=== PATIENT | male | born 2000 | race Two or more races ===

== ENCOUNTER 2025-01-16 14:44 | Emergency (ER) | payer OTHER ==
[~2025-01-16] VITALS: Ht 170.2 cm; Wt 71.3 kg
--- NOTE | 2025-01-16 16:05 | ED.PDOC ---
History of Present Illness HPI Comments 24-year-old male presents to ER with complaints of dog bite to left shoulder x1 day. Patient reports that he was bitten by a Rottweiler dog on his left shoulder at 11:00 a.m. 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 He reports 3/10 pain to left shoulder radiation. States that the owners of the dog reported that the dog was "up-to-date on shots". Notes he is unsure when his last tetanus shot was and presents to ER ambulatory on arrival, with steady gait, in no distress. Denies numbness/tingling, shortness of breath, chest pain, foreign body sensation or any further symptoms/complaints Chief Complaint: Animal Bite Time Seen by MD: 14:47 Primary Care Provider: UNKNOWN Reviewed Notes: Nurses Notes, Medications, Allergies Allergies: Coded Allergies: NO KNOWN ALLERGIES (Unverified , 01/16/25) Home Meds Active Scripts Amoxicillin & Pot Clavulanate (Amoxicillin/Potassium Cla) 875 Mg Tab, 1 TAB PO BID for 7 Days, #14 TAB 0 Refills Prov:TREASURE CARNES 01/16/25 Acetaminophen (Acetaminophen) 500 Mg Tab, 500 MG PO Q4HPRN, #30 TAB 0 Refills Prov:TREASURE CARNES 01/16/25 Information Source: Patient Mode of Arrival: Ambulatory Past Medical History PAST MEDICAL HISTORY: Denies Surgical History: Denies all surgeries Family History Family History: Unknown Social History Smoker: Non-Smoker Alcohol: Denies ETOH Use Drugs: Denies Drug Use Lives In: Home Constitutional: denies: chills, diaphoresis, fatigue, fever, malaise, sweats, weakness, others EENTM: denies: blurred vision, double vision, ear bleeding, ear discharge, ear drainage, ear pain, ear ringing, eye pain, eye redness, hearing loss, mouth pain, mouth swelling, nasal discharge, nose bleeding, nose congestion, nose pain, photophobia, tearing, throat pain, throat swelling, voice changes, others Respiratory: denies: cough, hemoptysis, orthopnea, SOB at rest, shortness of breath, SOB with excertion, stridor, wheezing, others Cardiovascular: denies: chest pain, dizzy spells, diaphoresis, Dyspnea on exertion, edema, irregular heart beat, left arm pain, lightheadedness, palpitations, PND, syncope, others Gastrointestinal: denies: abdomen distended, abdominal pain, blood streaked bowels, constipated, diarrhea, dysphagia, difficulty swallowing, hematemesis, melena, nausea, poor appetite, poor fluid intake, rectal bleeding, rectal pain, vomiting, others Genitourinary: denies: burning, dysuria, flank pain, frequency, hematuria, incontinence, penile discharge, penile sore, pain, testicle pain, testicle swelling, urgency, others Neurological: denies: dizziness, fainting, headache, left sided numbness, left sided weakness, numbness, paresthesia, pre-existing deficit, right sided numbness, right sided weakness, seizure, speech problems, tingling, tremors, weakness, others Musculoskeletal: denies: back pain, gout, joint pain, joint swelling, muscle pain, muscle stiffness, neck pain, others Integumetry: reports: others (As stated in HPI) Allergic/Immunocompromised: denies: Difficulty Healing, Frequent Infections, Hives, Itching, others Hematologic/Lymphatic: denies: anemia, blood clots, easy bleeding, easy bruising, swollen glands, others Endocrine: denies: excessive hunger, excessive sweating, excessive thirst, excessive urination, flushing, intolerance to cold, intolerance to heat, unexplained weight gain, unexplained weight loss, others Psychiatric: denies: anxiety, bipolar disorder, depression, hopeless, panic disorder, schizophrenia, sleepless, suicidal, others Physical Exam General Appearance: No Apparent Distress HEENT: PERRL/EOMI Neck: Full Range of Motion, Non-Tender, Normal Respiratory: Chest Non-Tender, Lungs Clear, No Accessory Muscle Use, No Respiratory Distress, Normal Breath Sounds Cardiovascular: No Murmur, No Gallop, Regular Rate/Rhythm Breast Exam: Deferred Gastrointestinal: NOT DONE Genitalia: Deferred Pelvic: Deferred Rectal: Deferred Extremities: Normal capillary refill, Normal range of motion Neurologic: Alert, machine marker II-XII nml as Tested, No Motor Deficits, Normal Affect, Normal Mood, No Sensory Deficits Cerebellar Function: Normal Reflexes: Normal Skin: Dry, Warm Peripheral Pulses: 2+ Radial (R), 2+ Radial (L), 2+ Brachial (R), 2+ Brachial (L) Lymphatic: No Adenopathy Was a procedure done? Was a procedure done?: Yes Sedation Sedation?: No Laceration Repair : Location Left shoulder Length 2 cm Anesthetic: Lidocaine (1%), Without epi Laceration Repair Prep: Saline, Betadine, by Irrigation (without any signs of foreign body) Laceration Repair Wound Comple: epidermis/dermis repair Laceration Repair: Number of sutures (2 placed - loosely approximated), Size (3-0), Nylon, Simple, Non-adherent gauze Informed consent obtained: Yes Risks, benefits, and alternati: Yes Images 1 - 2 cm laceration to left shoulder noted. Slight TTP/swelling/erythema localized to wound edges. 1 cm abrasion also appreciated. No foreign body/further skin changes noted. Negative apley's scratch test left shoulder. Patient able to fully move the left shoulder without difficulty. Pulses intact Differential Dx Considerations may include: fracture, dislocation, neurovascular injury, retained foreign body X-Ray, Labs, Meds, VS Vital Signs Date Time Temp Pulse Resp B/P (MAP) Pulse Ox O2 Delivery O2 Flow Rate FiO2 01/16/25 15:18 99.3 99 17 160/90 (113) 96 99.3 Current Medications Medications (Trade) Dose Ordered Sig/Guy Route Start Time Stop Time Status Last Admin Ceftriaxone Sodium (Rocephin) 1,000 mg ONCE ONCE IM 01/16/25 18:30 01/16/25 18:31 DC 01/16/25 18:41 Diphtheria/ Tetanus/Acell Pertussis (Boostrix T-Dap) 0.5 ml ONCE ONCE IM 01/16/25 18:30 01/16/25 18:31 DC 01/16/25 18:39 PATIENT: LESLIE RODRIGUEZOACCT: [id number]: [id number] : 2000 LOC: ER ROOM / BED: / AGE / SEX: 24 / M ADM STATUS: REG ER SERVICE 1629 ORDERING PHYSICIAN: KLAUS CORONEL RESIDENT PROCEDURE(s): LSHD2 - L SHOULDER 2+ VIEW XRAY REASON: animal bite ORDER NUMBER(s): [id number], ACCESSION NUMBER(s): [id number] CLINICAL INDICATION: animal bite TECHNIQUE: 3 radiographic views of the left shoulder were obtained. Comparison: None FINDINGS/IMPRESSION: There is no evidence of acute fracture or dislocation. The visualized joint space is well maintained. The alignment is anatomical. There is no radiopaque foreign body. ATED BY: RUMA BRIGGS DO DICTATED DATE/TIME: 01/16/251730 SIGNED BY: RUMA BRIGGS DO SIGNED DATE/TIME: 01/16/251730 CC: Left shoulder x-ray reviewed Rocephin 1 g IM ordered Tdap 0.5 mL IM ordered Wound care/cleaning discussed and advised Patient neurovascularly intact and reported improvement in symptoms prior to discharge Advised to follow up in two days for wound check Advised to follow up in 10-14 days for removal of sutures Workman's comp paperwork filled out Advised to follow up with PCP and workman's comp PCP in 1-2 days Patient verbalized understanding and agreeable with current plan of care Advised to return to ER immediately if symptoms worsen Images Reviewed?: Images reviewed and evaluated by me Time of 1ST Reevaluation: 18:32 Reevaluation 1ST: N/A Patient Education/Counseling: Diagnosis, Treatment, Prognosis, Need For Follow Up Family Education/Counseling: No Family Present Departure 1 Departure Time of Disposition: 18:58 Impression: Primary Impression: Dog bite of shoulder Additional Impression: Laceration of shoulder, left Qualified Codes: S41.012A - Laceration without foreign body of left shoulder, initial encounter Disposition: 01 HOME / SELF CARE / HOMELESS Condition: Stable e-Prescriptions Amoxicillin & Pot Clavulanate (Amoxicillin/Potassium Cla) 875 Mg Tab 1 TAB PO BID for 7 Days, #14 TAB 0 Refills Prov: TREASURE CARNES 01/16/25 Acetaminophen (Acetaminophen) 500 Mg Tab 500 MG PO Q4HPRN, #30 TAB 0 Refills Prov: TREASURE CARNES 01/16/25 Discharged With: Friend Critical Care Note Critical Care Time?: No Stability Stability form required: No Heart Score Heart Score: Heart Score Response (Comments) Value History N/A 0 EKG N/A 0 Age N/A 0 Risk Factors N/A 0 Troponin N/A 0 Total 0 KLAUS CORONEL RESIDENT Jan 16, 2025 16:05 TREASURE CARNES Jan 16, 2025 18:36
[2025-01-16] MEDS ORDERED: RABIES VACCINE (PCEC)/PF 2.5 UNITS IM ONE (16:30)
[2025-01-16] MEDS ORDERED: RABIES IMMUNE GLOBULIN 300unit/2ml (150unit/ml) INJ INFIL ONE (16:30)
[2025-01-16] MEDS ORDERED: AMOXICILLIN/CLAVUL 875 MG TAB PO ONE (16:30)
[2025-01-16 17:00] VITALS: BP 160/90; PULSE 99; RESP 17; TEMP 99.3; O2SAT 96
--- NOTE | 2025-01-16 17:34 | DVH ---
CLINICAL INDICATION: animal bite TECHNIQUE: 3 radiographic views of the left shoulder were obtained. Comparison: None FINDINGS/IMPRESSION: There is no evidence of acute fracture or dislocation. The visualized joint space is well maintained. The alignment is anatomical. There is no radiopaque foreign body.
[2025-01-16] MEDS ORDERED: AMOX875T4 PO (18:35)
[2025-01-16] MEDS ORDERED: ACET500T58 PO (18:35)
[2025-01-16] MEDS: TETANUS-DIPTH-ACEL PERTUSSIS 0.5ML SYR Tdap IM ONE (18:39)
[2025-01-16] MEDS: cefTRIAXone SOD 1,000 MG VL IM ONE (18:41)
== END 2025-01-16 19:07 | disposition home or self-care (01) ==
LOC: ER 14:44
DX: S41.012A Laceration without foreign body of left shoulder, initial encounter (principal); Z79.899 Other long term (current) drug therapy; W54.0XXA Bitten by dog, initial encounter; Y93.89 Activity, other specified; Y92.89 Other specified places as the place of occurrence of the external cause; Y99.8 Other external cause status
CPT/HCPCS: 12001; 73030; 90471; 90715; 96372; 99284; J0696; J2003; 90675

== ENCOUNTER 2025-01-26 08:15 | Emergency (ER) | payer OTHER ==
[~2025-01-26] VITALS: Ht 170.2 cm; Wt 72.3 kg
[~2025-01-26 08:15] MED LIST: ACET500T58 PO; AMOX875T4 PO
[2025-01-26 08:31] VITALS: BP 142/88; PULSE 70; RESP 18; TEMP 99; O2SAT 99
--- NOTE | 2025-01-26 08:49 | ED.PDOC ---
History of Present Illness HPI Comments A 24 YEAR OLD MALE PRESENTS TO THE ED WITH COMPLAINT OF SUTURE REMOVAL. PATIENT STATES HE HAD SUTURES PLACED ON HIS LEFT SHOULDER REGION 10 DAYS AGO AND IS HERE IN THE ED TODAY TO HAVE THEM REMOVED. PATIENT DENIES FEVER, CHILLS, SHORTNESS OF BREATH, CHEST PAIN, ABDOMINAL PAIN, NAUSEA, VOMITING, HEADACHE, OR OTHER COMPLAINTS. NO OTHER SYMPTOMS OR MODIFYING FACTORS AT THIS TIME. PATIENT IS ALERT, ORIENTED X 4, AND HAS STEADY GAIT. Chief Complaint: Suture Removal Time Seen by MD: 08:18 Primary Care Provider: UNKNOWN Reviewed Notes: Nurses Notes, Medications, Allergies Allergies: Coded Allergies: NO KNOWN ALLERGIES (Unverified , 01/16/25) Home Meds Active Scripts Amoxicillin & Pot Clavulanate (Amoxicillin/Potassium Cla) 875 Mg Tab, 1 TAB PO BID for 7 Days, #14 TAB 0 Refills Prov:TREASURE CARNES 01/16/25 Acetaminophen (Acetaminophen) 500 Mg Tab, 500 MG PO Q4HPRN, #30 TAB 0 Refills Prov:TREASURE CARNES 01/16/25 Information Source: Patient Mode of Arrival: Ambulatory Severity: None Timing: Days Duration: Since onset, Days Prehospital treatment: None Medication Refill: For: Other (SUTURE REMOVAL) Past Medical History PAST MEDICAL HISTORY: Denies Surgical History: Denies all surgeries Family History Family History: Unknown Social History Smoker: Non-Smoker Alcohol: Denies ETOH Use Drugs: Denies Drug Use Lives In: Home Constitutional: denies: chills, diaphoresis, fatigue, fever, malaise, sweats, weakness, others EENTM: denies: blurred vision, double vision, ear bleeding, ear discharge, ear drainage, ear pain, ear ringing, eye pain, eye redness, hearing loss, mouth pain, mouth swelling, nasal discharge, nose bleeding, nose congestion, nose pain, photophobia, tearing, throat pain, throat swelling, voice changes, others Respiratory: denies: cough, hemoptysis, orthopnea, SOB at rest, shortness of breath, SOB with excertion, stridor, wheezing, others Cardiovascular: denies: chest pain, dizzy spells, diaphoresis, Dyspnea on exertion, edema, irregular heart beat, left arm pain, lightheadedness, pa lpitations, PND, syncope, others Gastrointestinal: denies: abdomen distended, abdominal pain, blood streaked bowels, constipated, diarrhea, dysphagia, difficulty swallowing, hematemesis, melena, nausea, poor appetite, poor fluid intake, rectal bleeding, rectal pain, vomiting, others Genitourinary: denies: burning, dysuria, flank pain, frequency, hematuria, incontinence, penile discharge, penile sore, pain, testicle pain, testicle swelling, urgency, others Neurological: denies: dizziness, fainting, headache, left sided numbness, left sided weakness, numbness, paresthesia, pre-existing deficit, right sided numbness, right sided weakness, seizure, speech problems, tingling, tremors, weakness, others Musculoskeletal: denies: back pain, gout, joint pain, joint swelling, muscle pain, muscle stiffness, neck pain, others Integumetry: reports: laceration (LEFT ANTERIOR SHOULDER REPAIRED. ); denies: bruises, change in color, change in hair/nails, dryness, lesions, lumps, rash, wounds, others Allergic/Immunocompromised: denies: Difficulty Healing, Frequent Infections, Hives, Itching, others Hematologic/Lymphatic: denies: anemia, blood clots, easy bleeding, easy bruising, swollen glands, others Endocrine: denies: excessive hunger, excessive sweating, excessive thirst, excessive urination, flushing, intolerance to cold, intolerance to heat, unexplained weight gain, unexplained weight loss, others Psychiatric: denies: anxiety, bipolar disorder, depression, hopeless, panic disorder, schizophrenia, sleepless, suicidal, others All Other Systems: Reviewed and Negative Physical Exam General Appearance: No Apparent Distress, Normal HEENT: Normal ENT Inspection, PERRL/EOMI, Pharynx Normal, TMs Normal Neck: Full Range of Motion, Non-Tender, Normal, Normal Inspection Respiratory: Chest Non-Tender, Lungs Clear, No Accessory Muscle Use, No Respiratory Distress, Normal Breath Sounds Cardiovascular: No Edema, No JVD, No Murmur, No Gallop, Normal Peripheral Pulses, Regular Rate/Rhythm Breast Exam: Deferred Gastrointestinal: No Organomegaly, Non Tender, No Pulsatile Mass, Normal Bowel Sounds, Soft Genitalia: Deferred Pelvic: Deferred Rectal: Deferred Extremities: No calf tenderness, Normal capillary refill, Normal inspection, Normal range of motion, Non-tender, No pedal edema Musculoskeletal : Apperance: Normal Neurologic: Alert, part time II-XII nml as Tested, No Motor Deficits, Normal Affect, Normal Mood, No Sensory Deficits Cerebellar Function: Normal Reflexes: Normal Skin: Dry, Lacerations (LEFT ANTERIOR SHOULDER REPAIRED, HEALED THE LACERATION, NO INFECTION SOIGNS. ), Normal Color, Warm Peripheral Pulses: 2+ carotid (R), 2+ carotid (L) Lymphatic: No Adenopathy Was a procedure done? Was a procedure done?: No Differential Dx Considerations may include: ENCOUNTER FOR SUTURE REMOVAL, WOUND RECHECK, WOUND INFECTION X-Ray, Labs, Meds, VS Vital Signs Date Time Temp Pulse Resp B/P (MAP) Pulse Ox O2 Delivery O2 Flow Rate FiO2 01/26/25 08:31 70 18 99 Room Air 01/26/25 08:31 99.0 70 18 142/88 (106) 99 99.0 01/26/25 08:21 99.0 70 18 142/88 (106) 99 99.0 X-Ray, Labs, Meds, VS Comment EXTERNAL MEDICAL RECORDS REVIEWED: [NONE] INDEPENDENT HISTORIANS: [NONE] SOCIAL DETERMINANTS OF HEALTH: [NONE] LABS ORDERED: NONE REVIEWED AND INTERPRETED RESULTS: NONE IMAGING ORDERED: NONE TREATMENTS ORDERED: SUTURES WERE REMOVED. PROCEDURES PERFORMED: NONE CRITICAL CARE TIME: NONE I HAVE DISCUSSED THE PATIENT WITH THE ATTENDING PHYSICIAN DR. MORA AND HE AGREES WITH THE PATIENT'S PLAN OF CARE AND DISPOSITION. BASED ON HISTORY OF PRESENT ILLNESS, AND PHYSICAL EXAM, PATIENT WILL BE DISCHARGED HOME. SHARED DECISION MAKING: PATIENT INSTRUCTED TO FOLLOW UP WITH PRIMARY CARE PROVIDER IN 1-2 DAYS FOR RE-EVALUATION OF SYMPTOMS. PATIENT VERBALIZES UNDERSTANDING TO RETURN TO ED FOR NEW OR WORSENING SYMPTOMS OR IF FOLLOW UP WITH PCP CANNOT BE OBTAINED. PATIENT FEELS COMFORTABLE GOING HOME AT THIS TIME. ALL QUESTIONS ADDRESSED AT TIME OF DISCHARGE. Time of 1ST Reevaluation: 08:52 Reevaluation 1ST: Improved Patient Education/Counseling: Diagnosis, Treatment, Need For Follow Up Family Education/Counseling: Diagnosis, Treatment, Need For Follow Up Medical Screening: No EMC Exist At This Time Departure 1 Departure Time of Disposition: 08:52 Impression: Primary Impression: Encounter for removal of sutures Disposition: 01 HOME / SELF CARE / HOMELESS Condition: Stable Additional Instructions: FOLLOW-UP WITH PCP IN 1 TO 2 DAYS. RETURN TO ED FOR ANY NEW OR WORSENING SYMPTOMS. Discharged With: Self Critical Care Note Critical Care Time?: No Stability Stability form required: No I personally scribed for MAGDALENO PICKARD ([email or web address]) on 01/26/25 at 08:49. Electronically submitted by Charles Carpenter ([email or web address]). MAGDALENO PICKARD January 26, 2025 08:49
== END 2025-01-26 08:49 | disposition home or self-care (01) ==
LOC: ER 08:15
DX: S41.012D Laceration without foreign body of left shoulder, subsequent encounter (principal); Z48.02 Encounter for removal of sutures; Z79.899 Other long term (current) drug therapy; X58.XXXD Exposure to other specified factors, subsequent encounter